=== PATIENT | female | born 1990 ===

== ENCOUNTER 2018-07-22 13:12 | Emergency (ER) | payer OTHER ==
--- NOTE | 2018-07-22 13:21 | PDOC ---
Suture Removal/Wound Check HPI - History of Present Illness Chief Complaint: Suture/Staple Removal (other) Stated Complaint: SUTURE REMOVAL Time Seen by Provider: 07/22/18 13:20 History Source: Yes: Patient Exam Limitations: Yes: No Limitations Treated at: [facility] ED Date of Last ED visit: 07/15/18 - Previous ED Treatment Type of procedure performed on last visit: Yes: Laceration Repair Tetanus Immunization: Yes: Given at last ED visit - Onset of Previous Treatment Date of Occurence: 07/15/18 Comment:: 07/22/18 13:28 5 sutures removed without difficulty. wound well approximated. no bleeding, no redness, no warmth, no drainage from the site. Pt tolerated the procedure well. Pt had had a closed head injury with poss seizure activity 1 week ago. Sutures were placed to the L eyebrow. Pt return today for suture removal. Pt has an appointment for this week with her seizure clinic. Pt denies any further seizure activity. No other complaints. Past History - Travel Traveled outside of the country in the last 30 days: No Close contact w/someone who was outside of country & ill: No - Past Medical History Allergies/Adverse Reactions: Allergies Allergy/AdvReac Type Severity Reaction Status Date / Time No Known Allergies Allergy Verified 07/22/18 13:13 Home Medications: Ambulatory Orders Ethinyl Estradiol/Drospirenone [Filomena 28 Tablet] 1 each PO AM tablet 08/06/13 Alprazolam [Xanax] 0.5 mg PO TID PRN #0 tablet 04/04/15 COPD: No Seizures: Yes Other medical history: alcohol use disorder, cocaine use disorder - Immunization History Immunization Up to Date: Yes - Suicide/Smoking/Psychosocial Hx Smoking History: Never smoked Have you smoked in the past 12 months: No Information on smoking cessation initiated: No Hx Alcohol Use: No Drug/Substance Use Hx: No Suture Removal/Wound Check PE - Physical Exam Laceration/Wound Check Symptoms: reports: Improved Comments: 07/22/18 13:30 well healed and approximated Pain Intensity: 0 Current Severity Level: None Maximum Severity Level: None Pain Localization: None Location of Laceration/Wound: left: Eye (5 sutures to L eyebrow) Pain Radiation: None Comments: 07/22/18 13:31 5 sutures removed without difficulty. pt tolerated the procedure well *Physical Exam - Vital Signs Last Vital Signs Temp Pulse Resp BP Pulse Ox 98.3 F 84 20 111/73 100 07/22/18 13:12 07/22/18 13:12 07/22/18 13:12 07/22/18 13:12 07/22/18 13:12 Moderate Sedation - Procedure Monitoring Vital Signs: Procedure Monitoring Vital Signs Temperature 98.3 F 07/22/18 13:12 Pulse Rate 84 07/22/18 13:12 Respiratory Rate 20 07/22/18 13:12 Blood Pressure 111/73 07/22/18 13:12 O2 Sat by Pulse Oximetry (%) 100 07/22/18 13:12 Medical Decision Making - Medical Decision Making 07/22/18 13:31 a/p: 28yo female with a closed head injury on 07/15 with sutures to the L eyebrow -returns today for suture removal. -sutures removed without difficulty, wound well approximated, no bleeding, no drainage, no warmth, no redness -pt tolerated the procedure well *DC/Admit/Observation/Transfer Diagnosis at time of Disposition: Visit for suture removal - Discharge Dispostion Disposition: HOME Condition at time of disposition: Stable Decision to Admit order: No - Referrals Referrals: Alessio Hutton MD [Staff Physician] - - Patient Instructions Printed Discharge Instructions: DI for Suture Removal Additional Instructions: Please continue to apply topical antibiotic cream to the wound. Please wash with soap and water and pat dry. Please follow up with your PMD. Please return to the ED with any further concerns or complaints. - Post Discharge Activity
[2018-07-22 13:25] VITALS: BP 111/73; PULSE 84; TEMP 98.3; BMI 17.9
== END 2018-07-22 13:43 | disposition home or self-care (01) ==
LOC: FER 13:12
DX: Z48.02 Encounter for removal of sutures (principal)
CPT/HCPCS: 99281-25